=== PATIENT | female | born 1965 | race Caucasian/White ===

== ENCOUNTER 2016-06-20 13:21 | Emergency (ER) | payer OTHER, BC ==
[~2016-06-20] VITALS: Ht 165.1 cm; Wt 90.5 kg
[~2016-06-20 13:21] MED LIST: CEPH500C PO; DOXY100T PO; GEMF600 PO; LANS30; SULF1TAB47 PO; [UNRECOGNIZED DRUG - CODE] PO
[2016-06-20 13:23] VITALS: BP 189/102; PULSE 96; RESP 20; TEMP 98.2; O2SAT 98
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
[2016-06-21] MEDS ORDERED: GEMF600T PO (10:33)
[2016-06-21] MEDS ORDERED: OMEP40CA2 PO (10:33)
[2016-06-21] MEDS ORDERED: CHOLMIS PO (10:33)
[2016-06-21] MEDS ORDERED: FEXO1TAB97 PO (11:35)
[2016-06-21] MEDS ORDERED: NAPR500 PO (11:35)
[2016-06-21] MEDS ORDERED: CYCL1TAB29 PO (11:35)
== END 2016-06-20 17:40 | disposition left against medical advice (07) ==
LOC: NED 13:21
DX: Z53.21 Procedure and treatment not carried out due to patient leaving prior to being seen by health care provider (principal); M54.9 Dorsalgia, unspecified; V49.69XA Unspecified car occupant injured in collision with other motor vehicles in traffic accident, initial encounter; Y92.410 Unspecified street and highway as the place of occurrence of the external cause
CPT/HCPCS: 99282

== ENCOUNTER 2016-06-21 10:24 | Emergency (ER) | payer OTHER, BC ==
[~2016-06-21] VITALS: Ht 165.1 cm; Wt 90.0 kg
[2016-06-21 10:25] VITALS: BP 157/102; PULSE 98; RESP 16; TEMP 98.7; O2SAT 96
[2016-06-21] MEDS ORDERED: GEMF600T PO (10:33)
[2016-06-21] MEDS ORDERED: CHOLMIS PO (10:33)
[2016-06-21] MEDS ORDERED: OMEP40CA2 PO (10:33)
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
[2016-06-21] MEDS ORDERED: CYCL1TAB29 PO (11:35)
[2016-06-21] MEDS ORDERED: NAPR500 PO (11:35)
[2016-06-21] MEDS ORDERED: FEXO1TAB97 PO (11:35)
== END 2016-06-21 11:53 | disposition home or self-care (01) ==
LOC: PHEFT 10:24
DX: M54.2 Cervicalgia (principal); R07.81 Pleurodynia; J30.2 Other seasonal allergic rhinitis; I10 Essential (primary) hypertension; R09.81 Nasal congestion; R05 Cough; R06.7 Sneezing; E78.00 Pure hypercholesterolemia, unspecified; K21.9 Gastro-esophageal reflux disease without esophagitis; V43.52XA Car driver injured in collision with other type car in traffic accident, initial encounter
CPT/HCPCS: 99283; L0150

== ENCOUNTER 2017-06-21 06:23 | Emergency (ER) | payer BC ==
[~2017-06-21] VITALS: Ht 165.1 cm; Wt 88.6 kg
[~2017-06-21 06:23] MED LIST changes: -CEPH500C PO; +CHOLMIS PO; +CYCL10TA PO; -DOXY100T PO; +FEXO1TAB97 PO; -GEMF600 PO; +GEMF600T PO; -LANS30; +NAPR500 PO; +OMEP40CA2 PO; -SULF1TAB47 PO; -[UNRECOGNIZED DRUG - CODE] PO
[2017-06-21 06:32] VITALS: BP 147/96; PULSE 102; RESP 14; TEMP 98.7; O2SAT 95
[2017-06-21 07:46] LABS: BILIRUBIN, URINE NEG (NEG); BLOOD, URINE MOD (NEG); GLUCOSE,URINE NEG (NEG); KETONE, URINE TRACE mg/dL (NEG); NITRITE,URINE NEG (NEG); PH, URINE 5.5 (5.0-8.5); URINE COLOR YELLOW (YELLW/STRAW); URINE LEUKOCYTE ESTERASE NEG (NEG)
[2017-06-21 07:53] LABS: MUCUS URINE FEW /lpf (OCC); RBC, URINE 15-19 /hpf (0-3); WBC, URINE 0-2 /hpf (0-5)
--- NOTE | 2017-06-21 08:24 | PD ---
HPI Chief Complaint: Back/ Neck Pain or Injury Time Seen by Provider: 08:15 Travel History International Travel<30 days: No Contact w/Intl Traveler<30days: No Traveled to known affect area: No History of Present Illness HPI This 52-year-old female is complaining of low back pain. She says the pain started Monday quite abruptly. Been fairly persistent since then. Yesterday seemed to move into the right flank area she thought it seemed to be getting better but today it is again quite severe and involving both sides. She has not had any dysuria. She does not recall any injury. She has been having some diarrhea up until today and her doctor diagnosed with C. difficile and gave her prescription for vancomycin but she has not started that yet. She does not have any numbness or tingling in her legs. She feels weak all over but weak in the legs PFSH Past Medical History Cardiovascular Problems: Yes (HTN) High Cholesterol: Yes Diminished Hearing: No Gastrointestinal Disorders: Yes (DX WITH C-DIFF) GERD: Yes Hypertension: Yes Influenza Vaccination: No ?: Not Tubal Ligation: Yes Social History Alcohol Use: Yes (Daily - Heavy) Tobacco Use: No (QUIT) Substance Use: No Allergies-Medications (Allergen,Severity, Reaction): Coded Allergies: No Known Allergies (Verified , 06/21/16) Reported Meds & Prescriptions Reported Meds & Active Scripts Active Active Prescriptions or Reported Medications Unobtainable Review of Systems General / Constitutional: No: Fever, Chills Eyes: No: Diploplia HENT: No: Headaches, Vertigo Cardiovascular: No: Chest Pain or Discomfort, Palpitations Respiratory: No: Cough, Shortness of Breath Gastrointestinal: Positive: Diarrhea, No: Vomiting Genitourinary: No: Urgency, Frequency Musculoskeletal: Positive: Myalgias, Pain Skin: No Rash Neurologic: No: Weakness Hematologic/Lymphatic: No: Easy Bruising Physical Exam Narrative GENERAL: Well-developed female. She is uncomfortable with pain and is pacing SKIN: Focused skin assessment warm/dry. HEAD: Atraumatic. Normocephalic. EYES: Pupils equal and round. No scleral icterus. No injection or drainage. ENT: No nasal bleeding or discharge. Mucous membranes pink and moist. NECK: Trachea midline. No JVD. CARDIOVASCULAR: Regular rate and rhythm. No murmur appreciated. RESPIRATORY: No accessory muscle use. Clear to auscultation. Breath sounds equal bilaterally. GASTROINTESTINAL: Abdomen soft, non-tender, nondistended. Hepatic and splenic margins not palpable. MUSCULOSKELETAL: No obvious deformities. No clubbing. No cyanosis. No edema. There is some tenderness of the lower back. Sensation of the legs strength is intact NEUROLOGICAL: Awake and alert. No obvious cranial nerve deficits. Motor grossly within normal limits. Normal speech. PSYCHIATRIC: Appropriate mood and affect; insight and judgment normal. Data Data Last Documented VS Vital Signs Date Time Temp Pulse Resp B/P (MAP) Pulse Ox O2 Delivery O2 Flow Rate FiO2 06/21/17 08:55 84 16 146/83 (104) 94 Room Air 06/21/17 06:32 98.7 Orders Orders Urinalysis - C+S If Indicated (06/21/17 07:33) Ed Urine Pregnancytest Poc (06/21/17 07:40) Complete Blood Count With Diff (06/21/17 08:20) Basic Metabolic Panel (Bmp) (06/21/17 08:20) Sodium Chlor 0.9% 1000 Ml Inj (Ns 1000 M (06/21/17 08:30) Ondansetron Inj (Zofran Inj) (06/21/17 08:30) Hydromorphone Pf Inj (Dilaudid Pf Inj) (06/21/17 08:30) Ct Abd/Pel W/O Iv Contrast (06/21/17 08:25) Labs Laboratory Tests Test 06/21/17 07:36 06/21/17 08:50 Urine Collection Type CLEAN CATCH Urine Color YELLOW Urine Turbidity CLEAR Urine pH 5.5 Urine Specific [place] 1.025 Urine Protein TRACE mg/dL Urine Glucose (UA) NEG mg/dL Urine Ketones TRACE mg/dL Urine Occult Blood MOD Urine Nitrite NEG Urine Bilirubin NEG Urine Urobilinogen 0.2 MG/DL Urine Leukocyte Esterase NEG Urine RBC 15-19 /hpf Urine WBC 0-2 /hpf Urine Squamous Epithelial Cells 6-8 /hpf Urine Mucus FEW /lpf Microscopic Urinalysis Comment CULT NOT INDICATED Urine Collection Time 07:36 White Blood Count 7.4 TH/MM3 Red Blood Count 4.65 MIL/MM3 Hemoglobin 14.8 GM/DL Hematocrit 44.2 % Mean Corpuscular Volume 95.0 FL Mean Corpuscular Hemoglobin 31.9 PG Mean Corpuscular Hemoglobin Concent 33.6 % Red Cell Distribution Width 13.9 % Platelet Count 315 TH/MM3 Mean Platelet Volume 7.3 FL Neutrophils (%) (Auto) 65.5 % Lymphocytes (%) (Auto) 25.8 % Monocytes (%) (Auto) 6.3 % Eosinophils (%) (Auto) 1.8 % Basophils (%) (Auto) 0.6 % Neutrophils # (Auto) 4.9 TH/MM3 Lymphocytes # (Auto) 1.9 TH/MM3 Monocytes # (Auto) 0.5 TH/MM3 Eosinophils # (Auto) 0.1 TH/MM3 Basophils # (Auto) 0.0 TH/MM3 CBC Comment DIFF FINAL Differential Comment Blood Urea Nitrogen 12 MG/DL Creatinine 0.69 MG/DL Random Glucose 105 MG/DL Calcium Level 9.7 MG/DL Sodium Level 137 MEQ/L Potassium Level 3.5 MEQ/L Chloride Level 102 MEQ/L Carbon Dioxide Level 26.9 MEQ/L Anion Gap 8 MEQ/L Estimat Glomerular Filtration Rate 89 ML/MIN MDM Medical Decision Making Medical Screen Exam Complete: Yes Emergency Medical Condition: Yes Medical Record Reviewed: Yes Differential Diagnosis Differential includes musculoskeletal back pain, renal colic Narrative Course Urine does show some hematuria so I have ordered a CT to assess for possible renal colic. Patient does say that yesterday the pain seems localized in the right flank area. Urinalysis did show some red cells. CT scan is negative. There is mild levoscoliosis of the lumbar spine. This appears to be musculoskeletal back pain Diagnosis Primary Impression: Back pain Scripts Hydrocodone-Acetaminophen (Adona) 7.5-325 mg Tab 1 TAB PO Q4H Y for PAIN, #12 TAB 0 Refills Prov: Narciso Cronin MD 06/21/17 Disposition: 01 DISCHARGE HOME Condition: Stable Narciso Cronin MD Jun 21, 2017 08:24
[2017-06-21] MEDS ORDERED: ONDANSETRON HCL 4 MG/2 ML VIAL IV PUSH ONE (08:30)
[2017-06-21] MEDS ORDERED: HYDROmorphone HCL PF 2 MG/ML VIAL IV PUSH ONE (08:30)
[2017-06-21] MEDS ORDERED: SODIUM CHLOR 0.9% 1000 ML INJ 1,000 ML IV ONE (08:30)
[2017-06-21 08:55] VITALS: BP 146/83; PULSE 84; RESP 16; O2SAT 94
[2017-06-21 09:05] LABS: AUTOMATED NEUTROPHIL # 4.9 TH/MM3 (1.8-7.7); BASOPHIL % 0.6 % (0.0-2.0); EOSINOPHIL # 0.1 TH/MM3 (0-0.4); EOSINOPHIL % 1.8 % (0.0-4.0); HEMATOCRIT 44.2 % (35.0-46.0); HEMOGLOBIN 14.8 GM/DL (11.6-15.3); LYMPH % 25.8 % (9.0-44.0); LYMPHOCYTE # 1.9 TH/MM3 (1.0-4.8); MEAN CORPUSCULAR HEMOGLOBIN 31.9 PG (27.0-34.0); MEAN CORPUSCULAR HGB CONC 33.6 % (32.0-36.0); MEAN PLATELET VOLUME 7.3 FL (7.0-11.0); MONO % 6.3 % (0.0-8.0); MONOCYTE # 0.5 TH/MM3 (0-0.9); NEUT % 65.5 % (16.0-70.0); PLATELET COUNT 315 TH/MM3 (150-450); RED BLOOD COUNT 4.65 MIL/MM3 (4.00-5.30); RED CELL DISTRIBUTION WIDTH 13.9 % (11.6-17.2); WHITE BLOOD COUNT 7.4 TH/MM3 (4.0-11.0)
[2017-06-21 09:14] LABS: CALCIUM 9.7 MG/DL (8.5-10.1)
[2017-06-21 09:15] LABS: BICARBONATE 26.9 MEQ/L (21.0-32.0)
[2017-06-21 09:18] LABS: CREATININE 0.69 MG/DL (0.50-1.00)
--- NOTE | 2017-06-21 10:16 | RADRPT ---
EXAM DATE/TIME: 06/21/2017 08:57 [facility] COMPARISON: No previous studies available for comparison. INDICATIONS : Right flank and low back pain. Evaluate for renal stone. ORAL CONTRAST: No oral contrast ingested. RADIATION DOSE: 22.78 CTDIvol (mGy) MEDICAL HISTORY : Gastroesophageal reflux disease. Hypertension. SURGICAL HISTORY : Tubal ligation. ENCOUNTER: Initial ACUITY: 4 - 6 days PAIN SCALE: 8/10 LOCATION: Right flank TECHNIQUE: Volumetric scanning of the abdomen and pelvis was performed. Using automated exposure control and ad justment of the mA and/or kV according to patient size, radiation dose was kept as low as reasonably achievable to obtain optimal diagnostic quality images. DICOM format image data is available electro nically for review and comparison. FINDINGS: LOWER LUNGS: The visualized lower lungs are clear. LIVER: Homogeneous density without lesion. There is no dilation of the biliary tree. No calcified gallston es. SPLEEN: Normal size without lesion. PANCREAS: Within normal limits. KIDNEYS: Normal in size and shape. There is no mass, stone, or hydronephrosis. ADRENAL GLANDS: Within normal limits. VASCULAR: There is no aortic aneurysm. BOWEL/MESENTERY: The stomach, small bowel, and colon demonstrate no acute abnormality. There is no free intraperitone al air or fluid. Appendix is identified and is radiographically normal. ABDOMINAL WALL: Within normal limits. RETROPERITONEUM: There is no lymphadenopathy. BLADDER: No wall thickening or mass. REPRODUCTIVE: Within normal limits. INGUINAL: There is no lymphadenopathy or hernia. MUSCULOSKELETAL: Mild levoscoliosis of the lumbar spine. Otherwise intact CONCLUSION: 1. No acute intraperitoneal or pelvic process to explain current clinical symptoms. Specifically, no renal or ureteral calculi. Appendix is radiographically normal. 2. Mild levoscoliosis of the lumbar spine. Osseous structures are otherwise intact. Demetri Quinones MD on June 21, 2017 at 10:07 Board Certified Radiologist. This report was verified electronically.
[2017-06-21] MEDS ORDERED: HYDR-3288 PO (10:27)
[2017-06-21 10:50] VITALS: BP 144/96; PULSE 76; RESP 16; O2SAT 97
== END 2017-06-21 10:50 | disposition home or self-care (01) ==
LOC: PHED 06:23
DX: M54.9 Dorsalgia, unspecified (principal); R31.9 Hematuria, unspecified; M41.9 Scoliosis, unspecified; R19.7 Diarrhea, unspecified; M62.81 Muscle weakness (generalized); I10 Essential (primary) hypertension; E78.00 Pure hypercholesterolemia, unspecified; K21.9 Gastro-esophageal reflux disease without esophagitis; Z87.891 Personal history of nicotine dependence
CPT/HCPCS: 74176; 80048; 81001; 84703; 85025; 96361; 96374; 96375; 99284; J1170; J2405; J7030